=== PATIENT | female | born 1990 | race Caucasian/White ===

== ENCOUNTER → 2023-10-11 10:09 | Outpatient (BNVA) | payer BC, MEDICAID, SELFPAY | PROVIDERS: Visit Provider Emergency Medicine | DX: N39.0 Urinary tract infection, site not specified (principal) | CPT/HCPCS: 81000; 87077; 87086; 87184 ==

== ENCOUNTER 2023-12-27 19:13 | Emergency (ER) | payer BC, MEDICAID, SELFPAY ==
--- NOTE | 2023-12-27 19:15 | USR_ITS ---
PROCEDURE INFORMATION: Exam: US First Trimester, Transabdominal and US , Transvaginal Exam date and time: 12/27/2023 7:28 PM Age: 33 years old Clinical indication: Lmp or gestational age (in weeks): 6w 2d by reported lmp; Antepartum complications; Bleeding; Patient HX: G5-p4-a0-l4 with positive home test. Er very busy at this time, no labs are available at time of this exam. Spotting 2d. Patient says no abd pain, rather low back pain. LABS AND CLINICAL REPORTS: Last menstrual period start date: 11/13/2023 Gestational age (Established): 6 w 2 d Estimated due date (Established): 08/19/2024 TECHNIQUE: Imaging protocol: Real-time transabdominal obstetrical ultrasound of the maternal pelvis and a first trimester , less than 14 weeks 0 days, with image documentation. Transvaginal imaging was used for better evaluation of the fetus, adnexa, and/or cervix. COMPARISON: No relevant prior studies available. FINDINGS: Uterus is anteverted unremarkable in overall size and contour measuring 7.4 x 4.1 x 4.3 cm. Questionable isodense intramural fibroid measuring 1.5 x 1.1 cm. Endometrial lining is homogeneous not thickened measuring 7 mm in maximum thickness. There is no intrauterine gestational sac demonstrated. Cervix is unremarkable. Right ovary is unremarkable measuring 2.4 x 1.6 x 2.7 cm. Normal Doppler flow. No adnexal mass. Left ovary is enlarged secondary to 5.6 x 4.8 x 4.8 cm cyst. No free fluid seen in the cul-de-sac. US/US OB <= 14 weeks fetus [id number] IMPRESSION: 1. No evidence of intrauterine gestation at this time. Continued follow-up and correlation with serial HCG is recommended. 2. 5.6 cm relatively simple left ovarian cyst. Recommend a repeat pelvic ultrasound exam in 2-3 months for further assessment.
[2023-12-27 19:18] VITALS: BP 133/77; PULSE 83; RESP 18; TEMP 36.7; O2SAT 100
[2023-12-27 20:53] LABS: Basophils # 0.1 10^3/uL (0.0-0.1); Basophils % 0.9 %; Eosinophils # 0.1 10^3/uL (0.0-0.8); Eosinophils % 1.2 %; Mean Corpuscular HGB Conc 33.3 g/dL (30-55); Mean Corpuscular Hemoglobin 30.5 pg (27-33); Mean Corpuscular Volume 91.7 fl (85-98); Mean Platelet Volume 10.9 fL (7.4-10.4); Monocytes # 0.9 10^3/uL (0.2-0.9); Neutrophils # 4.06 10^3/uL (1.8-7.7); Neutrophils % 49.7 %; Nucleated Red Blood Cells % 0 %; Platelet Count 290 10^3/cmm (157-399); Red Blood Count 4.69 10^6/uL (3.85-5.65); Red Cell Distribution Width 11.6 % (12.1-15.1); White Blood Count 8.17 10^3/uL (3.29-11.43)
[2023-12-27 21:20] LABS: HCG Quantitative 36.86 mIU/mL
--- NOTE | 2023-12-27 21:58 | ED_ITS ---
HPI - Female Genitourinary 2 General: Chief complaint: Vaginal Bleeding Stated complaint: Preg\Bleeding Pain Time Seen by Provider: 12/27/23 21:25 History of Present Illness: Presents to the ER with complaints of spotting and cramping and history of positive test. Patient states in the last roughly week she is taken 3 tests and they were all positive patient actually did go see her physician on Sunday approximately 2 days ago had a beta-hCG drawn and it was approximately 120. Patient still been spotting and having back cramping ever since then. Date of Last Menstrual Period: 11/13/23 Review of Systems 2 General: Reports: 10 or more systems reviewed and unremarkable except in HPI and below PFSH ED 2 PFSH: Social History Smoking and tobacco/nicotine status: current every day tobacco/nicotine user cigarettes Packs smoked per day: 0.25 Quit status (tobacco/nicotine): not considering quitting Alcohol intake: never Substance/Drug Use: never Female Reproductive History: Date of last menstrual period: 11/13/23 S pontaneous abortions: No Physical Exam 2 Const: COMMON NORMALS: no acute distress, average body habitus, patient oriented x3, no limitations, healthy appearing, alert and well nourished Neck/C-Spine: COMMON NORMALS: no JVD Chest: COMMONS NORMALS: normal inspection of the chest and normal palpation of entire chest wall Resp: COMMON NORMALS: normal respiratory effort, No retractions, No use of accessory muscles and clear to auscultation bilaterally AUSCULTATION: clear to auscultation bilaterally Cardio: COMMON NORMALS: no JVD, regular rate, regular rhythm, S1 normal heart sound present, S2 normal heart sound present, No gallops present (Cardio), No clicks present (Cardio), No murmurs present (Cardio) and No rub (Cardio) R ATE: regular rate RHYTHM: regular rhythm HEART SOUNDS: S1 normal heart sound present and S2 normal heart sound present GI: COMMON NORMALS: Normal to inspection, nondistended, normoactive bowel sounds present, Soft to palpation, non-tender, No hepatosplenomegaly present and no masses PALPATION: Yes Soft to palpation and Yes No hepatosplenomegaly present Neuro: COMMON NORMALS: patient oriented x3 SENSORIUM/ORIENTATION: Yes alert Course 2 Vital Signs: Vital signs: Vital Signs Temperature 98.1 F 12/27/23 19:18 Pulse Rate 83 12/27/23 19:18 Respiratory Rate 18 12/27/23 19:18 Blood Pressure 133/77 12/27/23 19:18 Pulse Oximetry 100 12/27/23 19:18 Oxygen Delivery Me thod Room Air 12/27/23 19:18 MDM - Female Medical Decision Making Upon review of patient's lab work from her previous physician 2 days ago her beta-hCG was roughly 120 reviewing lab work today it is approximately 36 ultrasound showed no intrauterine gestation these results was discussed with the patient in detail about how this is significant for probable spontaneous miscarriage. Patient already has a follow-up appointment in approximately 4 days I instructed her to have the beta-hCG redrawn. Differential Diagnosis Unlikely abdominal pain, acute appendicitis, diverticulitis, endometriosis or small bowel obstruction Medical Records I reviewed the patient's medical records. Lab Data I reviewed the patient's lab results. 12/27/23 20:18 Radiology Impressions Ultrasound 12/27/23 19:15 IMPRESSION: 1. No evidence of intrauterine gestation at this time. Continued follow-up and correlation with serial HCG is recommended. 2. 5.6 cm relatively simple left ovarian cyst. Recommend a repeat pelvic ultrasound exam in 2-3 months for further assessment. Laboratory Results WBC 8.17 10^3/uL (3.29-11.43) 12/27/23 20:18 RBC 4.69 10^6/uL (3.85-5.65) 12/27/23 20:18 Hgb 14.30 g/dL (11.27-16.99) 12/27/23 20:18 Hct 43.0 % (36-47) 12/27/23 20:18 MCV 91.7 fl (85-98) 12/27/23 20:18 MCH 30.5 pg (27-33) 12/27/23 20:18 MCHC 33.3 g/dL (30-55) 12/27/23 20:18 RDW 11.6 % (12.1-15.1) L 12/27/23 20:18 Plt Count 290 10^3/cmm (157-399) 12/27/23 20:18 MPV 10.9 fL (7.4-10.4) H 12/27/23 20:18 Neut % (Auto) 49.7 % 12/27/23 20:18 Lymph % (Auto) 37.0 % 12/27/23 20:18 [place] % (Auto) 11.0 % 12/27/23 20:18 Eos % (Auto) 1.2 % 12/27/23 20:18 Baso % (Auto) 0.9 % 12/27/23 20:18 Neut # (Auto) 4.06 10^3/uL (1.8-7.7) 12/27/23 20:18 Lymph # (Auto) 3.0 10^3/uL (0.8-4.8) 12/27/23 20:18 [place] # (Auto) 0.9 10^3/uL (0.2-0.9) 12/27/23 20:18 Eos # (Auto) 0.1 10^3/uL (0.0-0.8) 12/27/23 20:18 Baso # (Auto) 0.1 10^3/uL (0.0-0.1) 12/27/23 20:18 Nucleated RBC % (auto) 0 % 12/27/23 20:18 Nucleated RBCs # 0.0 /100WBC 12/27/23 20:18 Ser , Semi-Qnt 36.86 mIU/mL 12/27/23 20:18 Blood Type O Positive 12/27/23 20:18 Rho(D) Type Rh positive 12/27/23 20:18 Antibody Screen Negative 12/27/23 20:18 All radiology interpretation(s) finalized by discharge Discharge Plan Discharge Patient Disposition: Home Clinical Impression: Spontaneous miscarriage Condition: Stable Prescriptions: No Action povidone-iodine [Betadine Swabsticks] 10 % swab 1 applic topical ONCE Qty: 150 0RF amoxicillin 500 mg capsule 500 mg PO BID Qty: 20 0RF Discharge Orders: Discharge ED (Routine); Ordered 12/27/23 Ordered By: Steve Hathaway Patient Instructions: Miscarriage (ED) Activity Restrictions/Additional Instructions: Your beta-hCG level was approximately 36 in the ER today. This is down from approximately 122 days ago. This may be indicative of a miscarriage. Please keep your appointment already scheduled on Sunday. Please have them redraw your quantitative beta-hCG. If you have any increase in bleeding or pain that is uncontrollable please feel free to return to the ER. Coding Level of Care Code ED Plasma Table Operator for Yannick Tyson
== END 2023-12-27 22:10 | disposition home or self-care (01) ==
PROVIDERS: Emergency Medicine; Emergency Provider Emergency Medicine
DX: O03.9 Complete or unspecified spontaneous abortion without complication (principal); F17.210 Nicotine dependence, cigarettes, uncomplicated
CPT/HCPCS: 36415; 76801; 84702; 85025; 86850; 86900; 99284

== ENCOUNTER 2025-06-12 11:07 | Emergency (ER) | payer BC, MEDICAID, SELFPAY ==
--- OUTSIDE RECORDS SUMMARY | 2025-06-12 11:14 | XMS_ITS | Clinical Summary ---
Author Organization [facility] Address [address] [address] Care Team Providers Care Peeler Operator Name Role Phone Unavailable Primary Care Provider Unavailabl e Allergies No known active allergies Medications PNV WITH CA,NO.72/IRON/F A ( VITAMINS LOW IRON ORAL) Take by mouth. Acti ve antipyrine-lorenza ocaine (AURODEX) 5.4-1.4 % Drops Administer 5 Drops in both ears every 4 hours. 10 mL 0 4 Active Active Problems Comments Yes No known active problems Immunizations Immunization Administration Dates Next Due (M-M-R II/PRIORIX)(12 MO UP) MEASLES, MUMPS AND RUBELLA VIRUS VACCINE, 0.5 ML IM/SUBCUT 08/03/1997,06/24/1996,06/22/1992 Dt Dtp Dtap Vaccine 08/03/1997, 4,06/22/1992,1991,07/22/1991 HIB, Unspecified Formulation 11/22/1993, 06/22/1992,01/20/1992,1990 Hepatitis B Vaccine 06/09/1999,08/25/1998,1997 IPV/OPV 08/03/1997, 6,11/22/1993,1991,01/20/1992,07/22/1991 Social History Tobacco Use Types Packs/Day Years Used Date Smoking Tobacco: Every Day Cigarettes Alcohol Use Standard Drinks/Week Comments No 0 (1 standard drink = 0.6 oz pur e alcohol) Comments Yes Sex and Gender Information Value Date Recorded Sex Assigned at Not on file 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 Gender Identity Not on file Sexual Orientation Not on file Last Filed Vital Signs Vital Sign Reading Time Taken Comments Blood Pressure 106/60 05/06/2014 1:46 PM CDT Pulse 112 05/06/2014 1:46 PM CDT Temperature 36.8 C (98.2 F) 05/06/2014 1:46 PM CDT Respiratory Rate 16 05/06/2014 1:46 PM CDT Oxygen Saturation 97% 05/06/2014 1:46 PM CDT Inhaled Oxygen Concentration - - Weight 45.5 kg (100 lb 6.4 oz) 05/06/2014 1:46 P M CDT Height 157.5 cm (5' 2 ) 05/06/2014 1:46 PM CDT Body Mass Index 18.36 05/06/2014 1:46 PM CDT Plan of Treatment Health Maintenance Due Date Last Done Comments DTAP/TDAP/TD VACCINES (6 - Tdap) 2001 08/03/1997, 11/22/1993, 06/22/1992, Additional history exists HPV VACCINES (1 - 3-dose series) 2005 HPV/Cotest (21-29) 2011 CERVICAL CANCER SCREENING 2020 HPV/Cotest (30-65) 2020 PAP SMEAR 2020 INFLUENZA VACCINE (#1) 2025 RSV VACCINE (60+ or ) (1 - 1-dose 75+ series) 2065 HEPATITIS B VACCINES Completed 06/09/1999, 08/25/1998, 07/08/1998 [place]
--- OUTSIDE RECORDS SUMMARY | 2025-06-12 11:14 | XMS_ITS | Encounter Summary ---
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
--- OUTSIDE RECORDS SUMMARY | 2025-06-12 11:14 | XMS_ITS | Encounter Summary ---
Author Organization [facility] Address [address] [place] [address] Care Team Providers Care Pin Pusher Name Role Phone Unavailable Primary Care Provider Unavailabl e Encounter Details Date Type Department Care Team (Latest Contact Info) Description 11/09/2003 Outpatient Historical [address] [id number] Alessandra Altamirano MD [address] [place] [address], [id number] NEUROTIC DEPRESSION (Primary Dx); BEREAVEMENT, UNCOMPLICAT Social History Tobacco Use Types Packs/Day Years Used Date Smoking Tobacco: Never Assessed Comments Unknown Sex and Gender Information Value Date Recorded Sex Assigned at Not on file 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
--- OUTSIDE RECORDS SUMMARY | 2025-06-12 11:14 | XMS_ITS | Encounter Summary ---
Author Organization [facility] Address [address] [place] [address] Care Team Providers Care Rn Complex Care Name Role Phone Unavailable Primary Care Provider Unavailabl e Encounter Details Date Type Department Care Team (Latest Contact Info) Description 11/25/2003 Outpatient Historical [address] [phone] Mariana Reddy, [facility] [facility] [address] [place] [address] NEUROTIC DEPRESSION (Primary Dx); BEREAVEMENT, UNCOMPLICAT Social History Tobacco Use Types Packs/Day Years Used Date Smoking Tobacco: Never Assessed Comments Unknown Sex and Gender Information Value Date Recorded Sex Assigned at Not on file 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
--- OUTSIDE RECORDS SUMMARY | 2025-06-12 11:14 | XMS_ITS | Clinical Summary ---
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
[2025-06-12 11:25] VITALS: BP 101/69; PULSE 87; RESP 16; TEMP 36.9; O2SAT 98
--- NOTE | 2025-06-12 12:31 | XR_ITS ---
WS: [id number] Thoracic spine, 4 views, 06/12/2025 Clinical Data: back pain Comparison: None. Findings: No compression fractures are seen. The disc heights are normal. The paravertebral regions are normal. There is a slight dextroscoliosis of the lower thoracic spine. XR/XR thoracic spine 3V* [id number] Impression: Minimal dextroscoliosis of the lower thoracic spine.
--- NOTE | 2025-06-12 12:31 | XR_ITS ---
WS: [id number] Portable AP upright chest, 06/12/2025 Clinical Data: cp Comparison: None. Findings: No nodules, masses or effusions are seen. The heart is normal. The pulmonary vascularity is not increased. No pneumonia or pneumothorax is seen. XR/XR chest 1V portable [id number] Impression: Negative chest.
--- NOTE | 2025-06-12 12:41 | ED_ITS ---
HPI - Back Pain/Injury 2 General: Chief Complaint: Back Pain/Injury Stated Complaint: Middle back pain Time Seen by Provider: 06/12/25 11:21 Source: patient Mode of arrival: ambulatory Limitations: no limitations History of Present Illness: 34-year-old female states been having ri ght sided upper back pain for the last few days states pains been sharp in nature does radiate to her chest at times states it seems to be worse with movement and palpation denies any injuries denies any fever rates her pain a 4 out of 10 currently Associated symptoms: Deny abdominal pain, chills, fever(s), nausea or vomiting Related Data Previous Rx's ?Medication ?Instructions ?Recorded methocarbamol 750 mg tablet 750 mg PO Q6H PRN spasms # 20 tabs 06/12/25 naproxen 500 mg tablet (Naprosyn) 500 mg PO BID PRN pa in #20 tabs 06/12/25 Allergies Allergy/AdvReac Type Severity Reaction Status Date / Time No Known Allergies Allergy Verified 12/27/23 19:21 Review of Systems 2 Const: Denies: fever(s), chills, body aches or change in appetite ENMT: Denies: throat pain or dental pain Card: Denies: chest pain Resp: Denies: dyspnea GI: Denies: abdominal pain, nausea, vomiting or diarrhea Musc: Reports: back pain; Denies: neck pain Skin/Breast: Denies: rash Neuro: Denies: headache(s) PFSH ED 2 PFSH: Social History Smoking and tobacco/nicotine status: current every day tobacco/nicotine user cigarettes Packs smoked per day: 0.25 Quit status (tobacco/nicotine): not considering quitting Alcohol intake: never Substance/Drug Use: never Female Reproductive History: Spontaneous abortions: No Physical Exam 2 Const: COMMON NORMALS: no acute distress, patient oriented x3 and healthy appearing HENMT: COMMON NORMALS: normocephalic and atraumatic HEAD & SCALP: n ormocephalic and atraumatic Eye: COMMON NORMALS: conjunctivae normal CONJUNCTIVA: Yes conjunctivae normal Neck/C-Spine: COMMON NORMALS: full ROM and supple Chest: COMMONS NORMALS: normal inspection of the chest Resp: COMMON NORMALS: normal respiratory effort Cardio: COMMON NORMALS: regular rate, regular rhythm and No murmurs present (Cardio) RATE: regular rate RHYTHM: regular rhythm GI: COMMON NORMALS: Normal to inspection, nondistended, normoactive bowel sounds present, Soft to palpation, non-tender and no masses PALPATION: Yes Soft to palpation Back/Pelvis: OTHER: Tenderness noted to right thoracic region no midline tenderness Extremity: COMMON NORMALS: normal to inspection and full ROM Neuro: COMMON NORMALS: patient oriented x3, moves all extremities and no focal motor deficits Psych: COMMON NORMALS: mental status grossly normal, Normal thought process present and cooperative THOUGHT PROCESS: Normal thought process present Skin: COMMON NORMALS: no rashes or lesions noted and no wounds GENERAL SKIN EXAM: no rashes or lesions noted Course 2 Vital Signs: Vital signs: Vital Signs Temperature 98.4 F 06/12/25 11:25 Pulse Rate 87 06/12/25 11:25 Respiratory Rate 16 06/12/25 11:25 Blood Pressure 101/69 06/12/25 11:25 Pulse Oximetry 98 06/12/25 11:25 Oxygen Delivery Me thod Room Air 06/12/25 11:25 MDM - Back Pain/Injury Medical Decision Making Patient presents here with back pains likely muscular in nature imaging blood work here is all normal she is stable for discharge follow-up PCP return if worsening. Medical Records I reviewed the patient's medical records. Labs I reviewed the patient's lab results. 06/12/25 12:47 06/12/25 12:47 Radiology Impressions Chest X-Ray 06/12/25 12:31 Impression: Negative chest. Thoracic Spine X-Ray 06/12/25 12:31 Impression: Minimal dextroscoliosis of the lower thoracic spine. Laboratory Results WBC 9.73 10^3/uL (3.29-11.43) 06/12/25 12:47 RBC 4.90 10^6/uL (3.85-5.65) 06/12/25 12:47 Hgb 15.60 g/dL (11.27-16.99) 06/12/25 12:47 Hct 45.8 % (36-47) 06/12/25 12:47 MCV 93.5 fl (85-98) 06/12/25 12:47 MCH 31.8 pg (27-33) 06/12/25 12:47 MCHC 34.1 g/dL (30-55) 06/12/25 12:47 RDW 11.9 % (12.1-15.1) L 06/12/25 12:47 Plt Count 200 10^3/cmm (157-399) 06/12/25 12:47 MPV 11.9 fL (7.4-10.4) H 06/12/25 12:47 Neut % (Auto) 57.2 % 06/12/25 12:47 Lymph % (Auto) 25.6 % 06/12/25 12:47 [place] % (Auto) 14.6 % 06/12/25 12:47 Eos % (Auto) 1.8 % 06/12/25 12:47 Baso % (Auto) 0.6 % 06/12/25 12:47 Neut # (Auto) 5.56 10^3/uL (1.8-7.7) 06/12/25 12:47 Lymph # (Auto) 2.5 10^3/uL (0.8-4.8) 06/12/25 12:47 [place] # (Auto) 1.4 10^3/uL (0.2-0.9) H 06/12/25 12:47 Eos # (Auto) 0.2 10^3/uL (0.0-0.8) 06/12/25 12:47 Baso # (Auto) 0.1 10^3/uL (0.0-0.1) 06/12/25 12:47 Nucleated RBC % (auto) 0 % 06/12/25 12:47 Nucleated RBCs # 0.0 /100WBC 06/12/25 12:47 D-Dimer <= 0.27 ug/mLFEU (0-0.59) 06/12/25 12:47 Sodium 138 mmol/L (136-145) 06/12/25 12:47 Potassium 4.0 mmol/L (3.5-5.1) 06/12/25 12:47 Chloride 102 mmol/L (98-107) 06/12/25 12:47 Carbon Dioxide 22 mmol/L (22-29) 06/12/25 12:47 Anion Gap 18.0 (5-19) 06/12/25 12:47 BUN 6 mg/dL (6-20) 06/12/25 12:47 Creatinine 0.6 mg/dL (0.5-0.9) 06/12/25 12:47 GFR Calculation 114.4 mL/min (90-130) 06/12/25 12:47 Glucose 86 mg/dL (65-115) 06/12/25 12:47 Calculated Osmolality 283 mOsm/kg (285-295) L 06/12/25 12:47 Calcium 9.4 mg/dL (8.5-10.5) 06/12/25 12:47 Total Bilirubin 0.4 mg/dL (0.15-1.2) 06/12/25 12:47 AST 14 U/L (0-32) 06/12/25 12:47 ALT 7 U/L (0-33) 06/12/25 12:47 Alkaline Phosphatase 88 U/L (35-105) 06/12/25 12:47 Total Protein 7.8 g/dL (6.6-8.7) 06/12/25 12:47 Albumin 4.5 g/dL (3.5-5.2) 06/12/25 12:47 Globulin 3.3 g/dL (1.3-4.6) 06/12/25 12:47 HCG, Qual Negative (Negative) 06/12/25 12:47 Urine Color Yellow (Yellow) 06/12/25 14:05 Urine Appearance Cloudy (CLEAR) A 06/12/25 14:05 Urine pH 5.5 (5-7) 06/12/25 14:05 Ur Specific [place] 1.014 (1.005-1.030) 06/12/25 14:05 Urine Protein Negative (Negative) 06/12/25 14:05 Urine Glucose (UA) Negative (Normal) 06/12/25 14:05 Urine Ketones 1+ (Negative) H 06/12/25 14:05 Urine Blood Negative (Negative) 06/12/25 14:05 Urine Nitrate Negative (Negative) 06/12/25 14:05 Urine Bilirubin Negative (Negative) 06/12/25 14:05 Urine Urobilinogen 0.2 mg/dL (Negative) 06/12/25 14:05 Ur Leukocyte Esterase Negative (Negative) 06/12/25 14:05 Amorphous Sediment Not Reportable 06/12/25 14:05 All radiology interpretation(s) finalized by discharge Discharge Plan Discharge Patient Disposition: Home Clinical Impression: Thoracic back pain Condition: Stable Prescriptions: New methocarbamol 750 mg tablet 750 mg PO Q6H PRN (Reason: spasms) Qty: 20 0RF naproxen [Naprosyn] 500 mg tablet 500 mg PO BID PRN (Reason: pain) Qty: 20 0RF Discharge Orders: Discharge ED (Routine); Ordered 06/12/25 Ordered By: Sabas Lowe Discharge Diet: Advance as tolerated Discharge Activity: Resume usual activity Patient Instructions: Back Pain (ED) Print Language: Palauan Coding Level of Care Code ED Shell Mold Bonding Machine Operator for Yannick Tyson
[2025-06-12 12:55] LABS: Hematocrit 45.8 % (36-47); Hemoglobin 15.60 g/dL (11.27-16.99); Mean Corpuscular HGB Conc 34.1 g/dL (30-55); Mean Corpuscular Hemoglobin 31.8 pg (27-33); Mean Corpuscular Volume 93.5 fl (85-98); Nucleated Red Blood Cells % 0 %; Platelet Count 200 10^3/cmm (157-399); Red Blood Count 4.90 10^6/uL (3.85-5.65); White Blood Count 9.73 10^3/uL (3.29-11.43)
[2025-06-12 13:17] LABS: Alanine Aminotransferase 7 U/L (0-33); Albumin Level 4.5 g/dL (3.5-5.2); Alkaline Phosphatase 88 U/L (35-105); Anion Gap 18.0 (5-19); Aspartate Amino Transferase 14 U/L (0-32); Blood Urea Nitrogen 6 mg/dL (6-20); Calcium 9.4 mg/dL (8.5-10.5); Carbon Dioxide 22 mmol/L (22-29); Chloride 102 mmol/L (98-107); Creatinine Clr Calc Pharmacy 101.2924; Globulin 3.3 g/dL (1.3-4.6); Glucose 86 mg/dL (65-115); HCG, Serum Qual Negative (Negative); Osmolality Calculated 283 mOsm/kg (285-295); Potassium 4.0 mmol/L (3.5-5.1); Sodium 138 mmol/L (136-145); Total Protein 7.8 g/dL (6.6-8.7)
[2025-06-12 14:12] LABS: Add Urine Microscopic? NO
[2025-06-12 14:19] LABS: Glucose Urine UA Negative (Normal); Nitrate Urine Negative (Negative); Specific Gravity, Urine 1.014 (1.005-1.030)
[2025-06-12 14:22] LABS: Charge for UA Resulting for Rev
[2025-06-12 14:33] VITALS: BP 85/58; PULSE 62; O2SAT 100
== END 2025-06-12 14:33 | disposition home or self-care (01) ==
PROVIDERS: Emergency Provider Emergency Medicine
DX: M54.6 Pain in thoracic spine (principal); F17.210 Nicotine dependence, cigarettes, uncomplicated
CPT/HCPCS: 36415; 71045; 72072; 80053; 81003; 84703; 85025; 85378; 96372; 99284; J1885